=== PATIENT | male | born 1965 | race Caucasian/White ===

== ENCOUNTER 2017-03-28 12:37 | Emergency (ER) | payer OTHER ==
[~2017-03-28] VITALS: Ht 182.9 cm; Wt 148.0 kg
[2017-03-28 12:55] VITALS: TEMP 36.4; Ht 182.9 cm; Wt 148.0 kg
[2017-03-28] MEDS ORDERED: PRLSR20 PO (13:30)
[2017-03-28] MEDS ORDERED: METO25TA3 PO (13:30)
[2017-03-28] MEDS ORDERED: LEVO50TA6 PO (13:30)
[2017-03-28] MEDS ORDERED: METO50TA7 PO (13:30)
[2017-03-28] MEDS ORDERED: ASPI81TA28 PO (13:30)
[2017-03-28] MEDS ORDERED: ATOR-24 PO (13:30)
[2017-03-28] MEDS ORDERED: ASPI-390 PO (13:33)
--- NOTE | 2017-03-28 13:46 | EMERGENCY ROOM VISIT NOTE ---
History Report prepared by Meena: Kip Bradshaw Under the Supervision of: Dr. Phan Polanco M.D. First contact with patient: 13:28 Chief Complaint: FALL Stated Complaint: INJURIES FROM FALL History of Present Illness The patient is a 52 year old male who presents to the Emergency Room with complaints of a sudden mechanical fall that occurred around 13 hours ago. He says that was getting up in the middle of the night to go to the bathroom when he passed out and thinks he hit his ribs on his dresser and the left side of his face on the wall. The patient notes that ever since the fall he has had rib pain and left wrist pain, in addition to injuries to the left side of his face around his eye. He states that he has had left-sided facial numbness, and it hurts to close his left eye. The patient says that he did not get to the bathroom, and he urinated in his pants. The patient notes that he drank 2 shots of scotch last night before the fall, but he did not pass out due to the drinking. No one witnessed the fall. He says that he thinks he was out around 5 to 15 minutes. The patient says that this is the 3rd time in the past 3 weeks that he has been close to passing out. He adds that he has had a headache ever since the fall, but he is not sure if that is just from the lack of sleep after the fall. He denies any fevers, chills, cough, congestion, shoulder pain, or back pain. The patient says that he recently had an angiogram, and is not able to be stented because the artery is "too close". He takes Aspirin and Metoprolol daily. He says that he thinks the Metoprolol has contributed to his recent issues, and the dose was switched a week and a half ago from 100 to 75 extended release. He notes that he smokes marijuana occasionally but did not smoke last night. Source of History: patient Onset: 13 hours ago Position: other (global - fall) Quality: other (mechanical) Timing: other (sudden) Associated Symptoms: + LOC, + headache, + numbness (around left eye), No fevers, No chills, No cough, No back pain Note: Associated symptoms: Rib pain, left wrist pain. Hurts to open left eye. Denies congestion or shoulder pain. Review of Systems See HPI for pertinent positives and negatives. A total of ten systems were reviewed and were otherwise negative. Past Medical & Surgical Medical Problems: (1) Heart disease (2) Pituitary mass Family History Cancer Diabetes mellitus Heart disease Social History Smoking Status: Current Every Day Smoker Alcohol Use: occasionally Drug Use: marijuana Housing Status: lives with friends Occupation Status: unemployed Current/Historical Medications Scheduled Aspirin (Aspirin Ec), 81 MG PO QPM Jjztlsf-Obbqayajufmnh-Hsjnmdru (Excedrin Migraine), 1 TAB PO DAILY Atorvastatin (Lipitor), 40 MG PO HS Levothyroxine Sodium (Levothyroxine Sodium), 50 MCG PO QAM Metoprolol Succ (Toprol Xl) (Toprol-Xl), 50 MG PO DAILY Metoprolol Succ (Toprol Xl) (Toprol-Xl), 25 MG PO DAILY Omeprazole (Prilosec), 20 MG PO DAILY Allergies Coded Allergies: Penicillins (Unverified Allergy, Severe, RASH/HIVES, 03/28/17) Latex (Unverified Allergy, Intermediate, RASH, 03/28/17) Physical Exam Vital Signs Date Time Temp Pulse Resp B/P (MAP) Pulse Ox O2 Delivery O2 Flow Rate FiO2 03/28/17 19:42 65 16 170/94 99 03/28/17 18:25 65 18 169/105 96 Room Air 03/28/17 16:42 63 18 167/108 96 Room Air 03/28/17 14:50 64 15 128/98 97 Room Air 03/28/17 14:10 96 Room Air 03/28/17 14:04 71 03/28/17 12:55 36.4 56 20 158/130 94 Room Air Physical Exam GENERAL: Awake, alert, well-appearing, in no acute distress HENT: Periorbital contusion to left as well as contusion and edema extended to left zygoma with tenderness to palpation in that area, otherwise no malocclusion or septal hematoma. No hemotympanum. Oropharynx unremarkable. Dry mucous membranes. EYES: Normal conjunctiva. Sclera non-icteric. NECK: Supple. No nuchal rigidity. FROM. No JVD. RESPIRATORY: Clear to auscultation. CARDIAC: Regular rate, normal rhythm. Extremities warm and well perfused. Pulses equal. ABDOMEN: Obese, soft, non-distended. No tenderness to palpation. No rebound or guarding. No masses. RECTAL: Deferred. MUSCULOSKELETAL: Mild tenderness in right lateral anterior chest wall but no reproducibility of pain when pushing on ribs posteriorly. LOWER EXTREMITIES: Calves are equal size bilaterally and non-tender. No edema. No discoloration. NEURO: Normal sensorium. No sensory or motor deficits noted. SKIN: No rash or jaundice noted. Medical Decision & Procedures ER Provider Diagnostic Interpretation: Radiology results as stated below per my review and radiologist interpretation: MAXILLOFACIAL CT CT DOSE: 1115.02 mGycm HISTORY: Left periorbital/zygoma swelling/contusion TECHNIQUE: Multiaxial CT images of the maxillofacial region were performed and reformatted in the coronal plane without the use of contrast. A dose lowering technique was utilized adhering to the principles of ALARA. COMPARISON: None. FINDINGS: The visualized cervical spine, skull base, pterygoid plates, nasal bones, lamina papyracea, zygomatic arches, and mandible are intact. Nondisplaced left orbital floor fracture. There is also a nondisplaced fracture within the lateral wall of the left maxillary sinus. The globes and retrobulbar fat are intact. Mild left periorbital soft tissue swelling. Opacification of the left ethmoid air cells. There is also nondisplaced fracture within the medial wall of the left orbit. IMPRESSION: Nondisplaced fractures within the left orbital floor, medial orbital wall and lateral wall the left maxillary sinus. Electronically signed by: Piero Galloway M.D. 03/28/2017 3:16 PM Dictated Date/Time: 03/28/2017 2:[address] SCAN OF THE BRAIN WITHOUT IV CONTRAST CLINICAL HISTORY: Headache. COMPARISON STUDY: No priors. TECHNIQUE: Unenhanced axial CT scan of the brain is performed from the vertex to the skull base. Automated dose control exposure was utilized. A dose lowering technique was utilized adhering to the principles of ALARA. CT DOSE: 823.94 mGycm FINDINGS: Brain parenchyma: The brain parenchyma is normal in appearance. There is no hemorrhage, mass effect, or evidence of acute territorial ischemia by CT criteria. Bardales-white matter is preserved. No extra-axial fluid collection is seen. Ventricles, sulci, cisterns: Normal in configuration. Intracranial vasculature: The visualized intracranial vasculature at the skull base is normal in appearance. Calvarium: Unremarkable. Sinuses and mastoids: Mucosal thickening is seen within the ethmoid sinuses, left greater than right. The remaining visualized paranasal sinuses are clear. The mastoid air cells are well pneumatized. Orbits: The bony orbits are grossly intact. IMPRESSION: No acute intracranial abnormality. Electronically signed by: Mario Galindo M.D. 03/28/2017 3:01 PM Dictated Date/Time: 03/28/2017 2:57 PM CHEST ONE VIEW PORTABLE CLINICAL HISTORY: Chest pain. COMPARISON STUDY: No previous studies for comparison. FINDINGS: There is no pneumothorax or pleural effusion. Pulmonary vascularity is normal. No airspace opacities are identified. There is mild to moderate cardiomegaly. IMPRESSION: 1. No acute cardiopulmonary findings. 2. Mild to moderate cardiomegaly. Electronically signed by: Seth Collier M.D. 03/28/2017 2:16 PM Dictated Date/Time: 03/28/2017 2:15 PM LEFT WRIST 4 VIEWS CLINICAL HISTORY: Left wrist pain and swelling. FINDINGS: 4 views of left wrist are obtained. No prior studies are available for comparison at the time of dictation. The skeletal structures are well mineralized. No fracture is seen. The joint spaces of the wrist appear maintained. Mild soft tissue swelling is identified. IMPRESSION: Soft tissue swelling with no radiographic evidence of right wrist fracture. Electronically signed by: Mario Galindo M.D. 03/28/2017 3:05 PM Dictated Date/Time: 03/28/2017 3:03 PM Laboratory Results 03/28/17 14:15 Red Blood Count 4.28, Mean Corpuscular Volume 99.3, Mean Corpuscular Hemoglobin 34.1, Mean Corpuscular Hemoglobin Concent 34.4, Mean Platelet Volume 9.6, Neutrophils (%) (Auto) 66.3, Lymphocytes (%) (Auto) 21.6, Monocytes (%) (Auto) 9.4, Eosinophils (%) (Auto) 1.6, Basophils (%) (Auto) 0.6, Neutrophils # (Auto) 5.73, Lymphocytes # (Auto) 1.86, Monocytes # (Auto) 0.81, Eosinophils # (Auto) 0.14, Basophils # (Auto) 0.05 03/28/17 14:15 Test 03/28/17 14:15 White Blood Count 8.63 K/uL (4.8-10.8) Red Blood Count 4.28 M/uL (4.7-6.1) Hemoglobin 14.6 g/dL (14.0-18.0) Hematocrit 42.5 % (42-52) Mean Corpuscular Volume 99.3 fL (80-100) Mean Corpuscular Hemoglobin 34.1 pg (25-34) Mean Corpuscular Hemoglobin Concent 34.4 g/dl (32-36) Platelet Count 175 K/uL (130-400) Mean Platelet Volume 9.6 fL (7.4-10.4) Neutrophils (%) (Auto) 66.3 % Lymphocytes (%) (Auto) 21.6 % Monocytes (%) (Auto) 9.4 % Eosinophils (%) (Auto) 1.6 % Basophils (%) (Auto) 0.6 % Neutrophils # (Auto) 5.73 K/uL (1.4-6.5) Lymphocytes # (Auto) 1.86 K/uL (1.2-3.4) Monocytes # (Auto) 0.81 K/uL (0.11-0.59) Eosinophils # (Auto) 0.14 K/uL (0-0.5) Basophils # (Auto) 0.05 K/uL (0-0.2) RDW Standard Deviation 50.1 fL (36.4-46.3) RDW Coefficient of Variation 13.9 % (11.5-14.5) Immature Granulocyte % (Auto) 0.5 % Immature Granulocyte # (Auto) 0.04 K/uL (0.00-0.02) Anion Gap 6.0 mmol/L (3-11) Est Creatinine Clear Calc Drug Dose 163.2 ml/min Estimated GFR () 120.1 Estimated GFR (Non- 103.6 BUN/Creatinine Ratio 11.7 (10-20) Calcium Level 8.8 mg/dl (8.5-10.1) Troponin I < 0.015 ng/ml (0-0.045) Pro-B-Type Natriuretic Peptide 219 pg/ml (0-900) Laboratory results reviewed by me Medications Administered Medications (Trade) Dose Ordered Sig/Raj Route Start Time Stop Time Status Last Admin Dose Admin Acetaminophen (Tylenol Tab) 1,000 mg NOW STAT PO 03/28/17 14:12 03/28/17 14:15 DC 8/25/17 15:05 1,000 MG ECG Indication: syncope Rate (beats per minute): 63 Rhythm: normal sinus Findings: 1st degree AV block, no acute ischemic change, other (normal axis) ED Course 1329: The patient was evaluated in room B10. A complete history and physical exam was performed. 1412: Ordered Tylenol Tab 1000 mg PO. 173: I reevaluated and updated the patient. 8: I reevaluated the patient and I recommended coming in for further evaluation, but the patient wants to go home against medical advice. He plans to follow up with plastic surgery in [place] where he lives. The patient will leave against medical advice after I perform the echo. Medical Decision I reviewed the patient's past medical history, medications, and the nursing notes as described above. Differential diagnoses: vasovagal orthostatic syncope, ACS, arrhythmia, CHF, less likely stroke, intracranial hemorrhage, dehydration, electrolyte abnormalities. The patient is a 52 y/o man with pmhx of htn and ?CAD who presents to the ED with left facial pain and swelling after having syncopal episode episode last night when getting up to go to the bathroom per hpi. On arrival in [facility], AFV[facility]. On exam has periorbital contusion/edema on left. CHAD, EOMi without pain. Denies changes in vision. Anterior chamber clear. CT head negative. Otherwise, with multiple orbital fxs without retrobulbar involvement. MIld right anterior CW pain likely minor contusion considering no reproducibility with palpation posteriorly. EKG unremarkable. Trop negative. CXR negative. Labs otherwise unremarkable. Considering syncopal episode I recommended to patient that he be admitted for teleobservation and formal echo. However, patient concerned that he did not have anyone to care for his dog since all his family is at the [facility]. Thus, I reviewed with the patient that leaving would be against medical advice and patient expressed understanding. My limited bedside echo showed no pericardial effusion and grossly normal LV/RV size and function. Otherwise, IVC with 100% variable on respiratory cycle suggesting mild dehydration that is c/w with patient's clinical exam. Likley contributed to orthostatic syncope. Findings reviewed with patient and plan for outpatient plastic surgery f/u and pcp f/u promptly when he returns home to [place] Patient agreeable and d/c'd AMA per discharge instructions. Head Trauma GCS Score: 15 Medication Reconcilliation Current Medication List: was personally reviewed by me Blood Pressure Screening Patient's blood pressure: Elevated blood pressure Blood pressure disposition: Referred to PCP Impression Primary Impression: Syncope and collapse Additional Impression: Orbit fracture, left Scribe Attestation The scribe's documentation has been prepared under my direction and personally reviewed by me in its entirety. I confirm that the note above accurately reflects all work, treatment, procedures, and medical decision making performed by me. Departure Information Dispostion Against Medical Advice Patient Instructions Fainting (Syncope) - [facility], Fx Facial, My [facility] Additional Instructions Please follow-up with your primary care doctor for reevaluation in the next few days as well as with plastic surgery within the next week for your orbital fractures. Please note we recommended that he stay for observation, by leaving AGAINST MEDICAL ADVICE you risk a worse condition, disability and even . If at any point change your mind or you have a return of your symptoms do not hesitate to return to the emergency department, we are open 24 hours a day and 7 days a [address]. Your CT scan showed multiple orbital fractures. Otherwise, your exam, lab results, chest x-ray, CT scan did not show signs of any emergent condition at this time. Sleep with her head elevated, do not blow your nose, and do not put any weight on your face to help prevent complications from your orbital fracture. Acetaminophen for pain as needed. Return to the emergency department for worsening symptoms as described in the accompanying instructions. Problem Qualifiers
[2017-03-28 14:10] VITALS: O2SAT 96
[2017-03-28] MEDS ORDERED: ACETAMINOPHEN 500 MG TAB PO STA (14:12)
--- NOTE | 2017-03-28 14:18 | DIAGNOSTIC IMAGING REPORT ---
CHEST ONE VIEW PORTABLE CLINICAL HISTORY: Chest pain. COMPARISON STUDY: No previous studies for comparison. FINDINGS: There is no pneumothorax or pleural effusion. Pulmonary vascularity is normal. No airspace opacities are identified. There is mild to moderate cardiomegaly. IMPRESSION: 1. No acute cardiopulmonary findings. 2. Mild to moderate cardiomegaly. Electronically signed by: Seth Collier M.D. 03/28/2017 2:16 PM Dictated Date/Time: 03/28/2017 2:15 PM
[2017-03-28 14:31] LABS: BASO % 0.6 %; BASO ABS # 0.05 K/uL (0-0.2); COMPLETE YES; EOS % 1.6 %; HEMATOCRIT 42.5 % (42-52); IG% 0.5 %; LYMPH % 21.6 %; LYMPH ABS # 1.86 K/uL (1.2-3.4); MEAN CELL VOLUME 99.3 fL (80-100); MEAN CORPUSCULAR HEMOGLOBIN 34.1 pg (25-34); MEAN CORPUSCULAR HGB CONC 34.4 g/dl (32-36); MEAN PLATELET VOLUME 9.6 fL (7.4-10.4); MONO % 9.4 %; NEUT % 66.3 %; PLATELET COUNT 175 K/uL (130-400); RED BLOOD COUNT 4.28 M/uL (4.7-6.1); WHITE BLOOD COUNT 8.63 K/uL (4.8-10.8)
[2017-03-28 14:53] LABS: BLOOD UREA NITROGEN 10 mg/dl (7-18); BUN/CREATININE RATIO 11.7 (10-20); CALCIUM 8.8 mg/dl (8.5-10.1); CARBON DIOXIDE 29 mmol/L (21-32); CHLORIDE 105 mmol/L (98-107); CREATININE 0.81 mg/dl (0.60-1.40); GLUCOSE 103 mg/dl (70-99); POTASSIUM 3.6 mmol/L (3.5-5.1); SODIUM 140 mmol/L (136-145)
--- NOTE | 2017-03-28 15:02 | DIAGNOSTIC IMAGING REPORT ---
CT SCAN OF THE BRAIN WITHOUT IV CONTRAST CLINICAL HISTORY: Headache. COMPARISON STUDY: No priors. TECHNIQUE: Unenhanced axial CT scan of the brain is performed from the vertex to the skull base. Automated dose control exposure was utilized. A dose lowering technique was utilized adhering to the principles of ALARA. CT DOSE: 823.94 mGycm FINDINGS: Brain parenchyma: The brain parenchyma is normal in appearance. There is no hemorrhage, mass effect, or evidence of acute territorial ischemia by CT criteria. Bardales-white matter is preserved. No extra-axial fluid collection is seen. Ventricles, sulci, cisterns: Normal in configuration. Intracranial vasculature: The visualized intracranial vasculature at the skull base is normal in appearance. Calvarium: Unremarkable. Sinuses and mastoids: Mucosal thickening is seen within the ethmoid sinuses, left greater than right. The remaining visualized paranasal sinuses are clear. The mastoid air cells are well pneumatized. Orbits: The bony orbits are grossly intact. IMPRESSION: No acute intracranial abnormality. Electronically signed by: Mario Galindo M.D. 03/28/2017 3:01 PM Dictated Date/Time: 03/28/2017 2:57 PM
--- NOTE | 2017-03-28 15:06 | DIAGNOSTIC IMAGING REPORT ---
LEFT WRIST 4 VIEWS CLINICAL HISTORY: Left wrist pain and swelling. FINDINGS: 4 views of left wrist are obtained. No prior studies are available for comparison at the time of dictation. The skeletal structures are well mineralized. No fracture is seen. The joint spaces of the wrist appear maintained. Mild soft tissue swelling is identified. IMPRESSION: Soft tissue swelling with no radiographic evidence of right wrist fracture. Electronically signed by: Mario Galindo M.D. 03/28/2017 3:05 PM Dictated Date/Time: 03/28/2017 3:03 PM
--- NOTE | 2017-03-28 15:17 | DIAGNOSTIC IMAGING REPORT ---
MAXILLOFACIAL CT CT DOSE: 1115.02 mGycm HISTORY: Left periorbital/zygoma swelling/contusion TECHNIQUE: Multiaxial CT images of the maxillofacial region were performed and reformatted in the coronal plane without the use of contrast. A dose lowering technique was utilized adhering to the principles of ALARA. COMPARISON: None. FINDINGS: The visualized cervical spine, skull base, pterygoid plates, nasal bones, lamina papyracea, zygomatic arches, and mandible are intact. Nondisplaced left orbital floor fracture. There is also a nondisplaced fracture within the lateral wall of the left maxillary sinus. The globes and retrobulbar fat are intact. Mild left periorbital soft tissue swelling. Opacification of the left ethmoid air cells. There is also nondisplaced fracture within the medial wall of the left orbit. IMPRESSION: Nondisplaced fractures within the left orbital floor, medial orbital wall and lateral wall the left maxillary sinus. Electronically signed by: Piero Galloway M.D. 03/28/2017 3:16 PM Dictated Date/Time: 03/28/2017 2:57 PM
[2017-03-28 19:42] VITALS: BP 170/94; PULSE 65; O2SAT 99
== END 2017-03-28 19:44 | disposition home or self-care (01) ==
LOC: C.EDB 12:39
DX: R55 Syncope and collapse (principal); S02.32XA Fracture of orbital floor, left side, initial encounter for closed fracture; W19.XXXA Unspecified fall, initial encounter; Y92.003 Bedroom of unspecified non-institutional (private) residence as the place of occurrence of the external cause; I51.9 Heart disease, unspecified; Z80.9 Family history of malignant neoplasm, unspecified; Z83.3 Family history of diabetes mellitus; Z82.49 Family history of ischemic heart disease and other diseases of the circulatory system; F17.210 Nicotine dependence, cigarettes, uncomplicated; Z79.82 Long term (current) use of aspirin; Z79.899 Other long term (current) drug therapy